=== PATIENT | female | born 1960 | race Caucasian/White ===

== ENCOUNTER 2018-06-11 23:05 | Emergency (ER) | payer MEDICAID ==
[~2018-06-11] VITALS: Ht 157.5 cm; Wt 69.4 kg
[2018-06-11 23:11] VITALS: BP 158/75
--- NOTE | 2018-06-11 23:14 | NUR ---
PT AMBULATED TO BED 4 WITH VSS. PROVIDED URINE. ACCOMPANIED BY DAUGHTER.
--- NOTE | 2018-06-11 23:23 | NUR ---
PT BIB SELF FOR VAGINAL DISCAHRGE STARTING THIS MORNING. PT REPORTS THAT D/C IS BROWN, ODORLESS, AND THAT SHE IS WEARING PAD TO CONTROL. PT HAS BURNING AND ITCHING TO VAGINAL AREA. PT DENIES ABD PAIN, N/V/D. NO PMH, NKDA
[2018-06-12 00:31] LABS: BILIRUBIN,URINE NEGATIVE (NEGATIVE); BLOOD, URINE LARGE (NEGATIVE); COLOR,URINE YELLOW (YELLOW); LEUKOCYTE ESTERASE ,URINE 3+ (NEGATIVE); NITRITE, URINE NEGATIVE (NEGATIVE); UGLUCOSE NEGATIVE (NEGATIVE)
[2018-06-12 00:32] LABS: APPEARANCE,URINE CLOUDY (CLEAR)
[2018-06-12] MEDS ORDERED: NITROFURANTOIN 100 MG CAP PO ONE (00:35)
[2018-06-12 00:46] LABS: RBC,URINE 11-20 (MOD) /HPF (0-5)
[2018-06-12 00:47] LABS: WBC,URINE 80-100 /HPF (0-5)
[2018-06-12 01:03] VITALS: BP 148/71
--- NOTE | 2018-06-12 01:03 | NUR ---
Patient discharged with v/s stable. Written and verbal after care instructions given and explained. Patient alert, oriented and verbalized understanding of instructions. Ambulatory with steady gait. All questions addressed prior to discharge. ID band removed. Patient advised to follow up with PMD. Rx of MACROBID 100MG given. Patient educated on indication of medication including possible reaction and side effects. Opportunity to ask questions provided and answered.
--- NOTE | 2018-06-14 15:14 | NUR ---
PATIENT URINE CULTURE RETURNED WITH POSITIVE FOR E COLI, SENT HOME ON MACROBID.
== END 2018-06-12 01:03 | disposition home or self-care (01) ==
LOC: MED 23:05
DX: N39.0 Urinary tract infection, site not specified (principal); R03.0 Elevated blood-pressure reading, without diagnosis of hypertension
CPT/HCPCS: 81001; 87086; 87186; 99283